=== PATIENT | male | born 1990 | race Caucasian/White ===

== ENCOUNTER 2016-10-07 21:27 | Emergency (ER) | payer SELFPAY ==
--- NOTE | 2016-10-08 06:55 | ER ---
ADMIT: 10/07/2016 RM/LOC: ER [facility] MR#: [id number] [id number] [place], [place] [id number] TAE FLOWERS [address] [place] [address] Emergency Room Report SEX: M AGE: 26 : 1990 DATE: 10/07/2016 TIME: 2127 hours. Please refer to my T-sheet for complete H and P. HISTORY OF PRESENT ILLNESS: Briefly, the patient is a 26-year-old, who was playing softball when he rolled his left ankle. He has hurt on the outside. He is unable to walk on it. PHYSICAL EXAMINATION: MUSCULOSKELETAL: His ankle is swollen over the lateral malleolus and tender. No pain over the base of the 5th. No pain over the calcaneus. His Achilles tendon is intact. No pain over the medial malleolus. No pain over the proximal fib. He is neurovascularly intact distally. EMERGENCY DEPARTMENT COURSE: X-ray of his left ankle showed no fracture. He was placed in an Deric. He had crutches at home. Ready for discharge. ASSESSMENT: Left anterior talofibular ligament strain. PLAN: Rest, ice, elevate, weight bear as tolerated, crutches, follow up with Dr. Rodriguez in 2 to 3 days if not better. Girdwood 5 mg, I gave him script for #15. Use Motrin. Roshan Dodson MD/ mikel JOB #: [id number] CC: Roshan Dodson MD, Attending Physician Dexter Rodriguez MD, Family Physician
== END 2016-10-07 22:40 | disposition home or self-care (01) ==
LOC: ER 21:27
DX: S93.492A Sprain of other ligament of left ankle, initial encounter (principal); X50.1XXA Overexertion from prolonged static or awkward postures, initial encounter; Y93.64 Activity, baseball